=== PATIENT | female | born 1995 | race Caucasian/White ===

== ENCOUNTER 2022-12-08 00:21 | Emergency (ER) | payer MEDICAID, OTHER ==
[~2022-12-08] VITALS: Ht 162.6 cm; Wt 100.7 kg
[~2022-12-08 00:21] MED LIST: BUSP10TA11 PO; CARV3.12 PO; HYDR1TAB PO; LORA1TAB PO; LOSA25TA96 PO
[2022-12-08 00:51] LABS: BASOPHILS % (AUTO) 0.2 % (0-1); EOSINOPHILS # (AUTO) 0.1 X10'3 (0-0.9); EOSINOPHILS % (AUTO) 1.8 % (0-6); HEMATOCRIT 37.5 % (35.0-45.0); HEMOGLOBIN 12.8 g/dl (12.0-16.0); LYMPHOCYTES # (AUTO) 1.8 X10'3 (1.1-4.8); LYMPHOCYTES % (AUTO) 32.4 % (21-51); MEAN CORPUSCULAR HEMOGLOBIN 28.8 PG (27.0-31.0); MEAN CORPUSCULAR HGB CONC 34.1 g/dL (33.0-36.5); MEAN CORPUSCULAR VOLUME 84.5 FL (78-98); MEAN PLATELET VOLUME 8.1 FL (7.4-10.4); MONOCYTES # (AUTO) 0.4 X10'3 (0-0.9); MONOCYTES % (AUTO) 7.9 % (2-12); NEUTROPHILS # (AUTO) 3.1 X10'3 (1.8-7.7); NEUTROPHILS % (AUTO) 57.7 % (42-75); PLATELET COUNT 224 X10'3 (140-440); RED BLOOD COUNT 4.44 X10'6 (4.20-5.60); RED CELL DISTRIBUTION WIDTH 13.3 % (11.5-14.5); WHITE BLOOD COUNT 5.5 X10'3 (4.5-11.0)
[2022-12-08 01:14] LABS: ALANINE AMINOTRANSFERASE 19 U/L (12-78); ALBUMIN 3.8 G/DL (3.4-5.0); ALBUMIN/GLOBULIN RATIO 1.1 (1.1-1.5); ALKALINE PHOSPHATASE 64 IU/L (46-116); ANION GAP 7 (8-16); ASPARTATE AMINO TRANSFERASE 15 U/L (10-37); BILIRUBIN,TOTAL 0.3 MG/DL (0.1-1.0); BLOOD UREA NITROGEN 13 MG/DL (7-18); BUN/CREATININE RATIO 17.1 (6.6-38.0); CALCIUM 8.8 MG/DL (8.5-10.1); CHLORIDE 102 MMOL/L (99-107); CREATININE 0.76 MG/DL (0.40-0.90); GLUCOSE 117 MG/DL (70-104); POTASSIUM 3.7 MMOL/L (3.5-5.1); SODIUM 137 MMOL/L (135-145); TOTAL PROTEIN 7.3 G/DL (6.4-8.2); eGFR > 90 ML/MIN
[2022-12-08 04:24] VITALS: BP 131/82
== END 2022-12-08 05:15 | disposition home or self-care (01) ==
LOC: ER 00:22
DX: R00.2 Palpitations (principal); I10 Essential (primary) hypertension; F41.9 Anxiety disorder, unspecified; F17.200 Nicotine dependence, unspecified, uncomplicated; Z79.899 Other long term (current) drug therapy
CPT/HCPCS: 36415; 71045; 80053; 83880; 84484; 85025; 93005; 99285

== ENCOUNTER 2023-05-30 02:40 | Emergency (ER) | payer MEDICAID ==
[~2023-05-30] VITALS: Ht 162.6 cm; Wt 102.7 kg
[2023-05-30] MEDS ORDERED: HYDR-3973 PO (03:42)
[2023-05-30] MEDS ORDERED: AMOX-117 PO (03:42)
[2023-05-30 04:07] VITALS: BP 145/95
== END 2023-05-30 04:08 | disposition home or self-care (01) ==
LOC: ER 02:40
DX: K08.89 Other specified disorders of teeth and supporting structures (principal); I10 Essential (primary) hypertension; F41.9 Anxiety disorder, unspecified; Z79.899 Other long term (current) drug therapy
CPT/HCPCS: 99283

== ENCOUNTER 2025-03-11 06:03 | Emergency (ER) | payer MEDICAID ==
[~2025-03-11] VITALS: Ht 162.6 cm; Wt 103.5 kg
[~2025-03-11 06:03] MED LIST changes: +LOSA-415 PO; -LOSA25TA96 PO
[2025-03-11 06:50] VITALS: PULSE 57
[2025-03-11] MEDS ORDERED: AMOX-580 PO (07:27)
[2025-03-11] MEDS: amox tr/potassium clavulanate 875/125mg TAB PO ONE (07:57)
[2025-03-11] MEDS: ketorolac trometh 30MG/ML vial 30 MG/ML VIAL IM ONE (07:58)
[2025-03-11 08:02] VITALS: BP 133/91; RESP 61; TEMP 99.1; O2SAT 98
== END 2025-03-11 08:05 | disposition home or self-care (01) ==
LOC: ER 06:04
DX: K02.9 Dental caries, unspecified (principal); I10 Essential (primary) hypertension
CPT/HCPCS: 96372; 99283; J1885

== ENCOUNTER 2025-05-08 15:42 | Emergency (ER) | payer MEDICAID ==
[~2025-05-08] VITALS: Ht 162.6 cm; Wt 101.9 kg
[2025-05-08 15:51] VITALS: BP 133/85; PULSE 73; RESP 16; TEMP 98.2; O2SAT 99
--- NOTE | 2025-05-08 17:29 | Physician Documentation ---
HPI ~ General Chief Complaint: Tooth Problem Stated Complaint: TOOTH PAIN Time Seen by MD: 16:11 Primary Medical Doctor: GEORGE DAI History of Present Illness HPI Comment Patient is seen today with complaints of dental pain. Patient states he needs an antibiotic. Patient states he has Tylenol ibuprofen at home. Patient has no other concern or complaint at this time. She denies any fevers or chills. Medication Reconciliation Allergies: Coded Allergies: No Known Allergies (Unverified , 07/23/12) Scheduled Buspirone Hcl* (Buspar*), 1.5 TAB PO BID, (Reported) Carvedilol (Coreg), 1 TABLET PO BID, (Reported) Hydrocodone/Acetaminophen (Vicodin 5-500 Tablet), 1 TAB PO Q6H Losartan Potassium* (Cozaar*), 2 TAB PO DAILY, (Reported) Scheduled PRN Lorazepam* (Ativan*), 1 TABLET PO PRN PRN for anxiety, (Reported) Past Medical History Past Medical History: *CARDIOVASCULAR*, Hypertension, Anxiety, Panic Disorder Past Surgical History: no surgical history Alcohol Use: None Drug Use: none Lives In: Home Occupation: employed Review of Systems Constitutional: Denies: chills, fever, weakness Eyes: Denies: pain, blurred vision ENT: Denies: ear pain, nose pain, throat pain, mouth pain Respiratory: Denies: cough, shortness of breath Cardiovascular: Denies: chest pain, palpitations Gastrointestinal: Denies: abdominal pain, nausea, vomiting Genitourinary: Denies: burning, dysuria Female Genitalia: Denies: vaginal discharge, pelvic pain Neurological: Denies: headache, dizziness Musculoskeletal: Denies: pain, swelling Integumentary: Denies: rash, lesions Allergic/Immunologic: Denies: hives, itching Hematologic/Lymphatic: Denies: no symptoms reported Psychiatric: Denies: depression, anxiety Physical Exam Vital Signs: Temperature: 98.2, Source: Oral, Heart Rate: 73, Respiratory Rate: 16, BP: 133/85, Pulse Oximetry: 99, Weight: 101.900 Oxygen Flow Rate: 0 Physical Exam General: Awake and Alert, no acute distress. HEENT: Conjunctiva pink, Sclera clear, Mucus Membranes moist. Neck: Supple without masses and tenderness. Resp: Unlabored. Lungs clear to auscultation bilaterally. Heart: Regular Rate and rhythm, normal S1 and S2 without murmur, rub or gallop. Abdomen: Soft and non tender no organomegaly Extremities: No cyanosis,clubbing or edema. Skin: Warm and Dry. Progress Results/Orders Results/Orders Vital Signs 05/08/25 15:51 Temp 98.2 Pulse 73 Resp 16 B/P (MAP) 133/85 Pulse Ox 99 O2 Flow Rate 0 Medical Decision Making Findings Patient is seen today with complaints of dental pain. Patient states he needs an antibiotic. Patient states he has Tylenol ibuprofen at home. Patient has no other concern or complaint at this time. She denies any fevers or chills. Patient was given a prescription for amoxicillin 875 mg one tab twice a day sent to patient's pharmacy. Patient will follow up with dentist as soon as possible. Patient will return to ED with any worsening, concerning or changing symptoms. Departure Disposition: HOME / SELF CARE / HOMELESS Impression: Primary Impression: Toothache Condition: Stable Discharge Instructions: Dental Pain Additional Instructions: Patient was given a prescription for amoxicillin 875 mg one tab twice a day sent to patient's pharmacy. Patient will follow up with dentist as soon as possible. Patient will return to ED with any worsening, concerning or changing symptoms. Referrals: NO PRIMARY CARE PROVIDER (PCP) Prescriptions Amoxicillin Trihydrate (Amoxicillin) 875 Mg Tablet 1 TAB PO Q12H for 10 Days, #20 TAB Prov: IVAN MORENO 05/08/25 Signature Scribe Signature: No scribe Attestation: No scribe IVAN MORENO May 08, 2025 17:29
[2025-05-08] MEDS ORDERED: AMOX875T10 PO (19:35)
== END 2025-05-08 17:57 | disposition left against medical advice (07) ==
LOC: ER 15:42
DX: K08.89 Other specified disorders of teeth and supporting structures (principal); F41.9 Anxiety disorder, unspecified; F41.0 Panic disorder [episodic paroxysmal anxiety]; Z79.899 Other long term (current) drug therapy
CPT/HCPCS: 99283

== ENCOUNTER 2025-05-08 21:37 | Emergency (ER) | payer MEDICAID ==
[~2025-05-08] VITALS: Ht 162.6 cm; Wt 101.4 kg
[~2025-05-08 21:37] MED LIST changes: +AMOX875T10 PO
[2025-05-08 21:41] VITALS: BP 133/80; PULSE 90; O2SAT 98
--- NOTE | 2025-05-08 22:11 | Physician Documentation ---
HPI ~ General Chief Complaint: Tooth Problem Stated Complaint: TOOTH PAIN Time Seen by MD: 22:11 Primary Medical Doctor: GEORGE DAI History of Present Illness HPI Comment Patient is seen today with a complaint of dental pain/lower jaw swelling and dental abscess. Patient states she has not appointment with the dentist coming up soon but needs a bridge of antibiotics and Toradol shot. Patient denies any fevers or chills. She has no other concern or complaint at this time. Medication Reconciliation Allergies: Coded Allergies: No Known Allergies (Unverified , 05/08/25) Scheduled Amoxicillin Trihydrate (Amoxicillin), 1 TAB PO Q12H Buspirone Hcl* (Buspar*), 1.5 TAB PO BID, (Reported) Carvedilol (Coreg), 1 TABLET PO BID, (Reported) Hydrocodone/Acetaminophen (Vicodin 5-500 Tablet), 1 TAB PO Q6H Losartan Potassium* (Cozaar*), 2 TAB PO DAILY, (Reported) Scheduled PRN Lorazepam* (Ativan*), 1 TABLET PO PRN PRN for anxiety, (Reported) Past Medical History Past Medical History: *CARDIOVASCULAR*, Hypertension, Anxiety, Panic Disorder Past Surgical History: no surgical history Alcohol Use: None Drug Use: none Lives In: Home Occupation: employed Review of Systems Constitutional: Denies: chills, fever, weakness Eyes: Denies: pain, blurred vision ENT: Denies: ear pain, nose pain, throat pain, mouth pain Respiratory: Denies: cough, shortness of breath Cardiovascular: Denies: chest pain, palpitations Gastrointestinal: Denies: abdominal pain, nausea, vomiting Genitourinary: Denies: burning, dysuria Female Genitalia: Denies: vaginal discharge, pelvic pain Neurological: Denies: headache, dizziness Musculoskeletal: Denies: pain, swelling Integumentary: Denies: rash, lesions Allergic/Immunologic: Denies: hives, itching Hematologic/Lymphatic: Denies: no symptoms reported Psychiatric: Denies: depression, anxiety Physical Exam Vital Signs: Temperature: 98.9, Source: Oral, Heart Rate: 90, Respiratory Rate: 18, BP: 133/80, Pulse Oximetry: 98, Weight: 101.360 Physical Exam General: Awake and Alert, no acute distress. HEENT: On exam does have some swelling of the gingiva of the left lower jaw. Patient has poor dentition. And multiple dental caries. Conjunctiva pink, Sclera clear, Mucus Membranes moist. Neck: Supple without masses and tenderness. Resp: Unlabored. Lungs clear to auscultation bilaterally. Heart: Regular Rate and rhythm, normal S1 and S2 without murmur, rub or gallop. Abdomen: Soft and non tender no organomegaly Extremities: No cyanosis,clubbing or edema. Skin: Warm and Dry. Progress Results/Orders Results/Orders Completed Orders - IVAN MORENO Ketorolac Trometh 30mg/Ml Vial (Toradol (05/08/25 22:09) Amoxicillin Capsule (Trimox Capsule) (05/08/25 22:09) Vital Signs 05/08/25 21:41 Temp 98.9 Pulse 90 Resp 18 B/P (MAP) 133/80 Pulse Ox 98 Medical Decision Making Findings Patient is seen today with a complaint of dental pain/lower jaw swelling and dental abscess. Patient states she has not appointment with the dentist coming up soon but needs a bridge of antibiotics and Toradol shot. Patient denies any fevers or chills. She has no other concern or complaint at this time. Patient was given dose of Toradol 30 mg IM along with amoxicillin a 1000 mg by mouth. Prescription of amoxicillin was sent to patient pharmacy. Patient will keep appointment with dentist. She will return to ED with any worsening, concerning or changing symptoms. Departure Disposition: 01 HOME / SELF CARE / HOMELESS Impression: Primary Impression: Dental abscess Condition: Stable Discharge Instructions: Dental Abscess Additional Instructions: Patient was given dose of Toradol 30 mg IM along with amoxicillin a 1000 mg by mouth. Prescription of amoxicillin was sent to patient pharmacy. Patient will keep appointment with dentist. She will return to ED with any worsening, concerning or changing symptoms. Referrals: NO PRIMARY CARE PROVIDER (PCP) Prescriptions Amoxicillin Trihydrate (Amoxicillin) 875 Mg Tablet 1 TAB PO Q12H for 10 Days, #20 TAB Prov: IVAN MORENO 05/08/25 Signature Scribe Signature: No scribe Attestation: No scribe IVAN MORENO May 08, 2025 22:11
[2025-05-08 23:39] VITALS: TEMP 98.9
[2025-05-08 23:46] VITALS: RESP 18
[2025-05-08] MEDS: ketorolac trometh 30MG/ML vial 30 MG/ML VIAL IM STA (23:46)
[2025-05-08] MEDS: amoxicillin 250mg capsule PO STA (23:48)
== END 2025-05-08 23:49 | disposition home or self-care (01) ==
LOC: ER 21:38
DX: K04.7 Periapical abscess without sinus (principal); I10 Essential (primary) hypertension; F41.9 Anxiety disorder, unspecified; F41.0 Panic disorder [episodic paroxysmal anxiety]; Z79.899 Other long term (current) drug therapy
CPT/HCPCS: 96372; 99283; J1885